=== PATIENT | male | born 1975 | race African-American/Black ===

== ENCOUNTER 2017-05-12 13:51 | Emergency (ER) | payer MEDICAID ==
[~2017-05-12] VITALS: Ht 182.9 cm; Wt 115.5 kg
[~2017-05-12 13:51] MED LIST: INSLAN SQ
[2017-05-12 14:02] LABS: GLUCOSE,POINT OF CARE 133 MG/DL (70-110)
[2017-05-12] MEDS ORDERED: MORPHINE SULFATE 10 MG/ML SYRINGE IM ONE (15:15)
[2017-05-12] MEDS ORDERED: ONDANSETRON HCL 4 MG/2 ML VIAL IM ONE (15:15)
[2017-05-12 15:31] LABS: BASOPHILS % (AUTO) 0.7 % (0.0-2.0); EOSINOPHILS % (AUTO) 0.9 % (1.0-6.0); HEMATOCRIT 45.4 % (41-53); HEMOGLOBIN 15.8 g/dL (13.5-17.5); LYMPHOCYTES # (AUTO) 2.9 K/uL (1.0-4.8); LYMPHOCYTES % (AUTO) 26.3 % (22.0-44.0); MEAN CORPUSCULAR HEMOGLOBIN 32.4 pg (26.0-34.0); MEAN CORPUSCULAR HGB CONC 34.9 G/dL (31.0-37.0); MEAN CORPUSCULAR VOLUME 93 fL (80-100); MONOCYTES # (AUTO) 1.1 K/uL (0.1-1.0); MONOCYTES % (AUTO) 9.7 % (2.0-9.0); NEUTROPHILS % (AUTO) 62.4 % (40.0-70.0); PLATELET COUNT (AUTO) 205 K/uL (150-450); RED BLOOD CELL COUNT(AUTO) 4.88 MIL/uL (4.50-5.90); RED CELL DISTRIBUTION WIDTH 13.5 % (11.5-14.5)
[2017-05-12 16:13] LABS: ANION GAP 8 mmol/L (8-16); CALCIUM, TOTAL 9.2 mg/dL (8.8-10.5); CARBON DIOXIDE 27 mmol/L (22-29); CHLORIDE 103 mmol/L (98-107); CREATININE 0.96 mg/dL (0.60-1.30); GLOMERULAR FILTR. RATE CALC > 60 mL/min (>60); GLUCOSE,RANDOM 132 mg/dL (70-110); POTASSIUM 3.7 mmol/L (3.5-5.1); SODIUM SERUM 138 mmol/L (136-145); UREA NITROGEN, BLOOD 11 mg/dL (7-18)
[2017-05-12 16:14] LABS: C-REACTIVE PROTEIN QUANT 2.12 mg/dL (0.00-0.30)
[2017-05-12] MEDS ORDERED: IOVERSOL 350 MG/ML 150 ML VIAL ONE (16:31)
[2017-05-12] MEDS ORDERED: SODIUM CHLORIDE 0.9% 100 ML ONE (16:31)
[2017-05-12 18:13] LABS: URIC ACID 7.2 mg/dL (2.6-7.2)
[2017-05-12 18:26] VITALS: BP 131/79
== END 2017-05-12 18:37 | disposition home or self-care (01) ==
LOC: EMS 13:53
DX: M70.72 Other bursitis of hip, left hip (principal); E11.9 Type 2 diabetes mellitus without complications; F12.90 Cannabis use, unspecified, uncomplicated; F17.210 Nicotine dependence, cigarettes, uncomplicated; Z79.4 Long term (current) use of insulin; Y93.89 Activity, other specified
CPT/HCPCS: 36415; 73701; 80048; 82962; 84550; 85025; 86140; 96372; 99285; 99406; J2270; J2405; J7050; Q9967

== ENCOUNTER 2017-09-26 14:35 | Emergency (ER) | payer MEDICAID ==
[~2017-09-26] VITALS: Ht 182.9 cm; Wt 113.6 kg
[2017-09-26] MEDS ORDERED: KETOROLAC TROMETHAMINE 30 MG/ML VIAL IM ONE (15:00)
[2017-09-26 17:11] VITALS: BP 132/81
== END 2017-09-26 17:10 | disposition home or self-care (01) ==
LOC: EMS 14:37
DX: S83.91XA Sprain of unspecified site of right knee, initial encounter (principal); E11.9 Type 2 diabetes mellitus without complications; F17.210 Nicotine dependence, cigarettes, uncomplicated; F12.10 Cannabis abuse, uncomplicated; Z79.4 Long term (current) use of insulin; W19.XXXA Unspecified fall, initial encounter; Y93.89 Activity, other specified; Y92.89 Other specified places as the place of occurrence of the external cause; Y99.8 Other external cause status
CPT/HCPCS: 73562; 82962; 96372; 99284; J1885